=== PATIENT | male | born 1955 | race Caucasian/White ===

== ENCOUNTER 2017-06-03 10:47 | Day surgery (SDC) | payer OTHER ==
[~2017-06-03] VITALS: Ht 190.5 cm; Wt 101.7 kg
[2017-06-03] MEDS ORDERED: LACTATED RINGERS 1,000 ML IV SCH (11:18)
[2017-06-03] MEDS ORDERED: METO50TA82 PO (11:23)
[2017-06-03] MEDS ORDERED: CHOL4PAC11 PO (11:23)
[2017-06-03] MEDS ORDERED: OMEP40CA6 PO (11:23)
[2017-06-03] MEDS ORDERED: VALS160T3 PO (11:23)
[2017-06-03 11:30] VITALS: BP 168/102
[2017-06-03] MEDS ORDERED: FENTANYL PF 100 MCG/2ML ONE ×2 (11:58→14:23)
[2017-06-03] MEDS ORDERED: MIDAZOLAM 1 MG/ML, 2ML ONE (11:58)
[2017-06-03] MEDS ORDERED: ROCURONIUM 10 MG/ML,10ML ONE (12:00)
[2017-06-03] MEDS ORDERED: SUCCINYLCHOLINE 20 MG/ML, 10ML ONE (12:00)
[2017-06-03] MEDS ORDERED: PROPOFOL 10 MG/ML, 20ML ONE (12:00)
[2017-06-03 12:03] LABS: ALBUMIN 3.9 g/dL (3.4-5.0); ANION GAP 9 mmol/L (5-15); CALCIUM 8.3 mg/dL (8.5-10.1); CHLORIDE 107 mmol/L (98-107)
[2017-06-03 12:06] LABS: ALANINE AMINOTRANSFERASE 15 U/L (12-78); ALKALINE PHOSPHATASE 73 U/L (45-117); BILIRUBIN,TOTAL 0.8 mg/dL (0.2-1.0); CREATININE 1.52 mg/dL (0.7-1.3)
[2017-06-03] MEDS ORDERED: DEXAMETHASONE 4 MG/ML, 1ML ONE (12:24)
[2017-06-03] MEDS ORDERED: EPHEDRINE 50 MG/ML, 1ML ONE (12:24)
[2017-06-03] MEDS ORDERED: ONDANSETRON 2MG/ML, 2ML ONE (12:24)
[2017-06-03] MEDS ORDERED: OXYcodone 5 MG/5 ML ORAL.SOL UDC PO PRN (13:00)
[2017-06-03] MEDS ORDERED: ALBUTEROL SULFATE 2.5 MG/3 ML NPPB PRN (13:00)
[2017-06-03] MEDS ORDERED: MIDAZOLAM 1 MG/ML, 2ML IV PRN (13:00)
[2017-06-03] MEDS ORDERED: LABETALOL 5MG/ML, 20ML IV PRN (13:00)
[2017-06-03] MEDS ORDERED: PROMETHAZINE 25 MG/ML, 1ML IV PRN (13:00)
[2017-06-03] MEDS ORDERED: hydrALAzine 20 MG/ML, 1ML IV PRN (13:00)
[2017-06-03] MEDS ORDERED: HYDROmorphone 1 MG/ML, 1ML IV PRN (13:00)
[2017-06-03] MEDS ORDERED: FENTANYL PF 100 MCG/2ML IV PRN (13:00)
[2017-06-03] MEDS ORDERED: ONDANSETRON 2MG/ML, 2ML IVPush PRN (13:00)
[2017-06-03] MEDS ORDERED: MEPERIDINE/PF 25MG/0.5ML IVPush PRN (13:00)
== END 2017-06-03 18:30 ==
LOC: OUT 10:47
PROVIDERS: ATTEND Internal Medicine Geriatric Medicine
DX: K63.89 Other specified diseases of intestine (principal)
CPT/HCPCS: 36415; 44376; 80053; 93005; J0330; J1100; J2250; J2405; J2704; J3010; J7120

== ENCOUNTER 2017-08-11 05:31 | Day surgery (SDC) | payer OTHER ==
[~2017-08-11] VITALS: Ht 190.5 cm; Wt 104.1 kg
[~2017-08-11 05:31] MED LIST: CHOL4PAC11 PO; METO50TA82 PO; OMEP40CA6 PO; VALS160T3 PO
[2017-08-11] MEDS ORDERED: AMLO2.5T PO (06:23)
[2017-08-11] MEDS ORDERED: LACTATED RINGERS 1,000 ML IV SCH (06:24)
[2017-08-11 06:28] VITALS: BP 129/88
[2017-08-11] MEDS ORDERED: ROCURONIUM 10 MG/ML,10ML ONE (07:08)
[2017-08-11] MEDS ORDERED: PROPOFOL 10 MG/ML, 20ML ONE (07:08)
[2017-08-11] MEDS ORDERED: LIDOCAINE-MPF 2% ,5ML ONE (07:08)
[2017-08-11] MEDS ORDERED: METOPROLOL 1 MG/ML, 5ML ONE (07:14)
[2017-08-11] MEDS ORDERED: ONDANSETRON 2MG/ML, 2ML IVPush PRN (07:30)
[2017-08-11] MEDS ORDERED: FENTANYL PF 100 MCG/2ML IV PRN (07:30)
[2017-08-11] MEDS ORDERED: morphine SULFATE 10 MG/ML, 1ML IV PRN (07:30)
[2017-08-11] MEDS ORDERED: METOPROLOL 1 MG/ML, 5ML IV PRN (07:30)
[2017-08-11] MEDS ORDERED: FENTANYL PF 100 MCG/2ML ONE ×2 (07:33→09:42)
[2017-08-11] MEDS ORDERED: DEXAMETHASONE 4 MG/ML, 1ML ONE (07:33)
[2017-08-11] MEDS ORDERED: ONDANSETRON 2MG/ML, 2ML ONE ×2 (07:33→09:40)
[2017-08-11] MEDS ORDERED: PHENYLEPHRINE 10 MG/ML ONE (08:14)
== END 2017-08-11 11:40 ==
LOC: OUT 05:31
PROVIDERS: ATTEND Internal Medicine Geriatric Medicine
DX: K63.3 Ulcer of intestine (principal); I10 Essential (primary) hypertension; I25.10 Atherosclerotic heart disease of native coronary artery without angina pectoris; Z91.09 Other allergy status, other than to drugs and biological substances
CPT/HCPCS: 44376; A4648; J1100; J2370; J2405; J2704; J3010; J3490; J7120